=== PATIENT | male | born 1980 | race Caucasian/White ===

== ENCOUNTER 2019-07-11 23:24 | Emergency (ER) | payer OTHER, SELFPAY ==
[2019-07-11 23:27] VITALS: BP 176/113; PULSE 99; RESP 16; TEMP 36.6; O2SAT 96; BMI 34.2
--- NOTE | 2019-07-11 23:31 | ED_ITS ---
Entered by Raiza Vernon, acting as scribe for Letty Khanna HPI - Eye Problem General: Chief complaint: Eye Problems Stated complaint: possible pink eye Time Seen by Provider: 07/11/19 23:30 Source: patient Mode of arrival: ambulatory Limitations: no limitations History of Present Illness: HPI Narrative: Toni is a nice 38-year-old male who comes in complaining of right eye irritation. He was recently exposed to pinkeye from his daughter. He states since seeing her he has had increasing irritation. He has no photophobia or eye pain just mild itching. He has some watery discharge. He denies any other complaints or concerns. This does not affect his vision except for occasionally when he gets teary he will have some blurred vision but with wiping his eye it clears. MD chief complaint: eye pain and eye redness Onset (ago): day(s) (YESTERDAY) Onset description: sudden Duration: constant Location: right eye Eye Symptoms: redness and pain Place: home Mechanism: other (exposed to child, son DX with pink eye) Severity: moderate If Pain, Quality: burning and other Associated symptoms: Reports other (watery eyes); Denies fever(s), headache(s), nausea, neck pain or vomiting Treatments Prior to Arrival: none Review of Systems General: Reports: other (negative unless marked) Const: Denies: fever, chills, body aches, fatigue, malaise or diaphoresis Eyes: Reports: other (See HPI) ENMT: Denies: throat pain, painful swallowing, hoarseness, ear pain, ear discharge, Change in hearing or nasal discharge Card: Denies: chest pain, palpitations, irregular heart rhythm, syncope, pre- syncope, shortness of breath on exertion or shortness of breath when lying down Resp: Denies: shortness of breath, productive cough, non-productive cough, wheezing, coughing up blood or chest congestion GI: Denies: abdominal pain, nausea, vomiting, vomiting blood, coffee grounds in vomit, diarrhea, constipation, cramping, blood in stool or black tarry stool : Denies: flank pain, difficulty urinating, painful urination, urinary frequency, urinary urgency, decreased urine ouput, urinary incontinence or blood in urine Musc: Denies: neck pain, back pain, extremity pain, extremity swelling, joint pain, joint swelling, joint warmth or joint stiffness Skin/Breast: Denies: rash, skin tenderness or yellow skin Neuro: Denies: headache, numbness in extremities, weakness in extremities, changes in sensation, lack of coordination, difficulty walking, dizziness, vertigo or confusion Endo: Denies: excessive thirst, tired all the time, cold intolerance, excessive sweating, flushing or hot flashes Anthony/Lymph: Denies: easy bruising, easy bleeding, petechiae or enlarged lymph nodes All/Imm: Denies: hives, throat swelling, tongue swelling, facial swelling or acute wheezing PFSH ED PFSH: Statuses (acute, chronic, etc) shown below reflect problem list status as previously entered and may not be historically accurate Social History Smoking and tobacco status: former smoker Physical Exam Const: COMMON NORMALS: no apparent distress, oriented x3, no limitations, healthy appearing and well nourished EXAM LIMITATIONS: no altered mental status GENERAL APPEARANCE: cooperative, well kempt and well developed ORIENTATION/CONSCIOUSNESS: Yes awake HENMT: COMMON NORMALS: normocephalic, head/scalp atraumatic, hearing grossly normal bilaterally, external ears normal, EAC's normal, external nose normal and moist oral mucous membranes HEAD & SCALP: normal to inspection, normocephalic and atraumatic FACE & SINUS: normal facial exam and face symmetric NOSE: external nose normal and nares normal EXTERNAL EAR: Yes external ears normal EXTERNAL AUDITORY CANAL: EAC's normal MOUTH: oral and palatal mucosa normal and tongue normal Neck/C-Spine: COMMON NORMALS: full ROM, no lymphadenopathy, supple, no meningeal signs and no JVD GENERAL: Yes normal visual inspection and Yes trachea midline CERVICAL SPINE: Yes cervical ROM normal Chest: COMMONS NORMALS: inspection of chest normal and palpation of chest normal Resp: COMMON NORMALS: normal respiratory effort, no retractions, no use of accessory muscles and clear to auscultation bilaterally EFFORT & INSPECTION: Yes able to speak in complete sentences AUSCULTATION: clear to auscultation bilaterally Cardio: COMMON NORMALS: no JVD, regular rate, regular rhythm, S1 normal heart sound, S2 normal heart sound, no gallops, no clicks, no murmurs and no rub JUGULAR VENOUS DISTENTION: no JVD RATE: regular rate RHYTHM: regular rhythm HEART SOUNDS: S1 normal and S2 normal GI: COMMON NORMALS: soft to palpation, non-tender, no hepatosplenomegaly and no masses INSPECTION: Yes normal to inspection PALPATION: Yes soft and Yes no hepatosplenomegaly : COMMON NORMALS: Yes no CVA tenderness BLADDER/KIDNEY EXAM: Yes no CVA tenderness Back/Pelvis: COMMON NORMALS: no CVA tenderness, thoracic and lumbar spine n ormal to inspection, no thoracic nor lumbar tenderness and thoraco-lumbar ROM normal Extremity: COMMON NORMALS: normal to inspection, full ROM, normal capillary refill, no joint enlargement, no clubbing, cyanosis or edema and no calf tenderness Neuro: COMMON NORMALS: oriented x3, CN's II-XII intact bilaterally, moves all extremities, no focal motor deficits and no sensory deficits noted MENINGEAL SIGNS: Yes no meningeal signs Psych: COMMON NORMALS: mental status grossly normal, thought process normal, cooperative, affect normal, speech normal and activity/motor behavior normal APPEARANCE: Yes well kempt SPEECH: Yes normal speech THOUGHT PROCESS: norm al thought process Skin: COMMON NORMALS: no rashes or lesions noted, skin turgor normal, no jaundice, no petechiae and no mottling GENERAL SKIN EXAM: no rashes or lesions noted and turgor normal Course Vital Signs: Vital signs: Vital Signs Temperature 97.8 F 07/11/19 23:27 Pulse Rate 96 07/11/19 23:50 Respiratory Rate 18 07/11/19 23:50 Blood Pressure 156/101 07/11/19 23:50 Pulse Oximetry 96 07/11/19 23:50 MDM - Eye Problem MDM Narrative: Medical decision making narrative: Patient signs and symptoms and exam are consistent with conjunctivitis. This is likely viral but we will treat for bacterial with erythromycin ointment. The patient has no questions or concerns. This does not affect his vision. He agrees to return should his symptoms change or worsen. Discharge Plan Discharge Patient Disposition: Home, Self-Care Clinical Impression: Bacterial conjunctivitis Condition: Stable Prescriptions: New erythromycin 5 mg/gram (0.5 %) ointment 1 applic ophthalmic (eye) Q6H Qty: 3.5 RF: 0 No Action amlodipine 5 mg Tablet 10 mg PO DAILY RF: 0 Prilosec OTC 20 mg Tablet,Delayed Release (Dr/Ec) 20 mg PO DAILY RF: 0 One-A-Day Men's Multivitamin 400-20-300 mcg Tablet 1 tab PO DAILY RF: 0 Discharge Orders: Discharge Order (Routine); Ordered 07/11/19 Ordered By: Letty Khanna Referrals: Vj Powell MD [Physician] - 4-7 days Discharge Diet: Usual diet Discharge Activity: Resume usual activity Patient Instructions: Conjunctivitis (ED) Activity Restrictions/Additional Instructions: Please return to the ER immediately for any of the signs or symptoms listed on your discharge instruction sheets, worsening/changing of your symptoms, you are not getting better as quickly as expected, or for ANY other cause or concerns. Discharge Date/Time: 07/11/19 23:58 Coding Level of Care Code ED Ship'S Pilot for Chg Fwd Exam Problem Focused The documentation recorded by the Saulo estrada Bridget Annette, accurately reflects the service I personally performed and the decisions made by , Letty Khanna Jul 11, 2019 23:24
[2019-07-11 23:45] VITALS: BP 156/101; PULSE 96; RESP 18; O2SAT 96
[2019-07-11 23:50] VITALS: BP 156/101; PULSE 96; RESP 18; O2SAT 96
[2019-07-12] MEDS: erythromycin Op Oint 1 gm 1 APPLIC EYE-RIGHT (00:01)
== END 2019-07-11 23:58 | disposition home or self-care (01) ==
LOC: ER 23:51
PROVIDERS: Emergency Provider Emergency Medicine
DX: H10.30 Unspecified acute conjunctivitis, unspecified eye (principal); Z87.891 Personal history of nicotine dependence
CPT/HCPCS: 99281; 99282